=== PATIENT | male | born 1965 | race Caucasian/White ===

== ENCOUNTER 2021-04-11 11:17 | Emergency (ER) | payer MEDICARE, OTHER ==
[~2021-04-11] VITALS: Ht 172.7 cm; Wt 100.2 kg
[2021-04-11] MEDS ORDERED: TYLOPHEN500 MG PO (12:00)
[2021-04-11] MEDS ORDERED: BUPROPION XL300 MG PO (12:01)
[2021-04-11] MEDS ORDERED: CATAPRES-TTS 11 EACH TD (12:06)
[2021-04-11] MEDS ORDERED: FLUVOXAMINE MA100 MG PO (12:07)
[2021-04-11] MEDS ORDERED: DEPAKOTE500 MG PO (12:07)
[2021-04-11] MEDS ORDERED: GABAPENTIN300 MG PO (12:08)
[2021-04-11] MEDS ORDERED: LEVOTHYROXINE75 MC1 PO (12:08)
[2021-04-11] MEDS ORDERED: LITHIUM CARBON300 MG PO (12:09)
[2021-04-11] MEDS ORDERED: ALTOPREV40 MG PO (12:10)
[2021-04-11] MEDS ORDERED: PRIMIDONE50 MG PO (12:10)
[2021-04-11] MEDS ORDERED: CLARITIN10 M1 PO (12:10)
[2021-04-11] MEDS ORDERED: RISPERDAL1 MG PO (12:11)
[2021-04-11] MEDS ORDERED: CEPHALEXIN500 M1 PO (12:31)
--- OUTSIDE RECORDS SUMMARY | 2021-04-11 12:38 | XMS ---
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 ED/UCC VISIT TRACKING (12 MO.) 04/11/2021 11:18 [facility] [place] TYPE: Emergency COMPLAINT: - BLOOD IN URINE 08/27/2020 15:43 [facility] [place] TYPE: Emergency DIAGNOSES: - Contusion of left middle finger without damage to nail, initial encounter - L MIDDLE FINGER INPATIENT VISIT TRACKING (12 MO.) No inpatient visits to display in this time frame [email or web address]
[2021-04-11] MEDS ORDERED: PYRIDIUM200 MG PO (12:48)
== END 2021-04-11 12:45 | disposition home or self-care (01) ==
LOC: ED 11:17
DX: N39.0 Urinary tract infection, site not specified (principal); Z79.899 Other long term (current) drug therapy
CPT/HCPCS: 51798; 81001; 87088; 99283-25

== ENCOUNTER 2021-04-23 07:48 | Emergency (ER) | payer MEDICARE, OTHER ==
[~2021-04-23] VITALS: Ht 172.7 cm; Wt 100.2 kg
[~2021-04-23 07:48] MED LIST: ALTOPREV40 MG PO; BUPROPION XL300 MG PO; CATAPRES-TTS 11 EACH TD; CEPHALEXIN500 M1 PO; CLARITIN10 M1 PO; DEPAKOTE500 MG PO; FLUVOXAMINE MA100 MG PO; GABAPENTIN300 MG PO; LEVOTHYROXINE75 MC1 PO; LITHIUM CARBON300 MG PO; PRIMIDONE50 MG PO; PYRIDIUM200 MG PO; RISPERDAL1 MG PO; TYLOPHEN500 MG PO
--- OUTSIDE RECORDS SUMMARY | 2021-04-23 07:50 | XMS ---
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 [facility] TOTAL 3 NOTE: Visits indicate total known visits. ED/UCC VISIT TRACKING (12 MO.) 04/23/2021 07:48 [facility] [place] TYPE: Emergency COMPLAINT: - BLLOD IN URINE 04/11/2021 11:18 [facility] [place] TYPE: Emergency COMPLAINT: - BLOOD IN URINE DIAGNOSES: - Urinary tract infection, site not specified - Hematuria, unspecified - Urinary tract infection, site not specified - Other alf (current) drug therapy 08/27/2020 15:43 [facility] [place] TYPE: Emergency DIAGNOSES: - Contusion of left middle finger without damage to nail, initial encounter - L MIDDLE FINGER INPATIENT VISIT TRACKING (12 MO.) No inpatient visits to display in this time frame [email or web address]
[2021-04-23] MEDS ORDERED: DOCUSATE SODIU100 MG PO (08:08)
[2021-04-23] MEDS ORDERED: MELATONIN3 MG PO (08:09)
[2021-04-23] MEDS ORDERED: PEG3350510 GM PO (08:10)
[2021-04-23] MEDS ORDERED: VITAMIN D31250 MC1 PO (08:11)
== END 2021-04-23 10:38 | disposition home or self-care (01) ==
LOC: ED 07:48
DX: R31.9 Hematuria, unspecified (principal); I10 Essential (primary) hypertension; Z79.899 Other long term (current) drug therapy
CPT/HCPCS: 74177; 80053; 81001; 85025; 99284-25; J7040; Q9967

== ENCOUNTER 2022-03-22 16:52 | Emergency (ER) | payer MEDICARE, OTHER ==
[~2022-03-22] VITALS: Ht 172.7 cm; Wt 100.2 kg
[~2022-03-22 16:52] MED LIST changes: +DOCUSATE SODIU100 MG PO; +MELATONIN3 MG PO; +PEG3350510 GM PO; +VITAMIN D31250 MC1 PO
--- OUTSIDE RECORDS SUMMARY | 2022-03-22 16:54 | XMS ---
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 04/25/2021 [facility] - Patient is currently established with [facility]. If patient is seen in the ED during business hours. Please contact CHWs at [facility]. Care Recommendation: If this patient has had 5 or more Emergency Department visits in the last 12 months.\T\nbsp; Patient will require education on the scope and purpose of the ED as an acute care provider not a Primary Care Provider and should not be utilized for chronic conditions.\T\nbsp; These are guidelines and the provider should exercise clinical judgment when providing care. E.D. VISIT COUNT (12 MO.) 3 [facility]. TOTAL 3 NOTE: Visits indicate total known visits. 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
[2022-03-22] MEDS ORDERED: KETOCONAZOLE10 GM MISC (18:12)
== END 2022-03-22 18:44 | disposition home or self-care (01) ==
LOC: ED 16:52
DX: N34.2 Other urethritis (principal); B35.6 Tinea cruris; I10 Essential (primary) hypertension; Z79.899 Other long term (current) drug therapy
CPT/HCPCS: 81001; 87491; 99283

== ENCOUNTER 2022-04-19 15:01 | Emergency (ER) | payer MEDICARE, OTHER ==
[~2022-04-19] VITALS: Ht 172.7 cm; Wt 100.2 kg
[~2022-04-19 15:01] MED LIST changes: +KETOCONAZOLE10 GM MISC
--- OUTSIDE RECORDS SUMMARY | 2022-04-19 15:05 | XMS ---
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 No recent Security Events currently on file CRITERIA MET - PDMP - [facility] - 2 Visits in 30 Days - [facility] - Has Care Guidelines CARE PROVIDERS KEERTHI SR Current PHONE: Unknown LUZ MARINA MARTINEZ Nurse Practitioner: Psychiatric/Mental 04/12/2021-Current [employer] PHONE: [phone] ERNESTINE AMARAL Nurse Practitioner: Family 04/25/2021-Current PHONE: [phone] Care Guidelines exist for the following facilities: [facility] ( 08/22/2019 ) Care History Medical/Surgical 04/25/2021 [facility] 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 04/25/2021 [facility] - Patient is currently established with [facility]. If patient is seen in the ED during business hours. Please contact CHWs at [facility]. Care Recommendation: If this patient [...] care. E.D. VISIT COUNT (12 MO.) 3 [facility]. TOTAL 3 NOTE: Visits indicate total known visits. ED/UCC VISIT TRACKING (12 MO.) 04/19/2022 15:02 [facility] TYPE: Emergency COMPLAINT: - FALL 03/22/2022 16:52 [facility] [place] TYPE: Emergency COMPLAINT: - POSS UTI DIAGNOSES: - Hematuria, unspecified - Other urethritis - Other nursing home (current) drug therapy - Essential (primary) hypertension - Anupam blues 04/23/2021 07:48 [facility] [place] TYPE: Emergency COMPLAINT: - BLLOD IN URINE DIAGNOSES: - Hematuria, unspecified - Essential (primary) hypertension - Other nursing home (current) drug therapy INPATIENT VISIT TRACKING (12 MO.) No inpatient visits to display in this time frame [email or web address]
[2022-04-19] MEDS ORDERED: LIPITOR10 MG PO (15:13)
== END 2022-04-19 16:43 | disposition home or self-care (01) ==
LOC: ED 15:01
DX: S06.0X0A Concussion without loss of consciousness, initial encounter (principal); W07.XXXA Fall from chair, initial encounter; I10 Essential (primary) hypertension; Z79.899 Other long term (current) drug therapy
CPT/HCPCS: 70450; A9270

== ENCOUNTER 2023-10-25 16:17 | Emergency (ER) | payer MEDICARE, OTHER ==
[~2023-10-25] VITALS: Ht 172.7 cm; Wt 83.6 kg
[~2023-10-25 16:17] MED LIST changes: +LIPITOR10 MG PO
[2023-10-25] MEDS ORDERED: ICOSAPENT ETHYL1 GM PO (16:35)
[2023-10-25 16:36] LABS: BASOPHILS 0.9 % (0-2); EOSINOPHILS 1.8 % (0-6); HEMATOCRIT 40.9 % (35.0-50.0); HEMOGLOBIN 13.5 g/dL (12.0-18.0); LYMPHOCYTES 30.7 % (24-44); MCH 28.6 (27-36); MCHC 33.1 g/dl (30-36); MCV 86.6 fl (81-99); NEUTROPHILS 54.6 % (39-80); PLATELET COUNT 207 K/uL (140-440); RBC 4.72 M/ul (4.3-5.7); RDW 16.6 (10.5-15.0)
[2023-10-25] MEDS ORDERED: SENNA8.6 MG PO (16:37)
[2023-10-25] MEDS ORDERED: METFORMIN HCL500 M1 PO (16:37)
[2023-10-25] MEDS ORDERED: TRAZODONE HCL50 MG PO (16:37)
[2023-10-25 16:48] LABS: ALBUMIN 3.9 g/dL (3.4-5.0); ALBUMIN/GLOBULIN RATIO 1.26 (1.1-2.4); ANION GAP 15.7 (7-21); BILIRUBIN, TOTAL 0.5 ng/dL (0.2-1.0); BUN/CREATININE RATIO 18.18 (6.0-28.6); CALCIUM 9.2 mg/dL (8.5-10.1); CREATININE, SERUM 0.88 mg/dL (0.70-1.30); POTASSIUM 4.7 mmol/L (3.5-5.1)
[2023-10-25 19:58] VITALS: BP 123/81
--- NOTE | 2023-10-26 15:35 | EKG ---
[facility] [address] [place], [place] [address] Signed Normal sinus rhythm Minimal voltage criteria for LVH, may be normal variant ( R in aVL ) Borderline ECG No previous ECGs available Confirmed by Jyoti Patel ([id number]) on 10/26/2023 3:35:30 PM Electronically Signed By: JYOTI PATEL MD 10/26/23 1535 PATIENT NAME: MIKKI CUMMINS Electrocardiogram DATE OF : 63 PHYSICIAN: JYOTI PATEL MD REPORT #: [id number] REPORT IS CONFIDENTIAL AND NOT TO BE RELEASED WITHOUT AUTHORIZATION
== END 2023-10-25 19:59 | disposition home or self-care (01) ==
LOC: ED 16:17
PROVIDERS: Emergency Medicine
DX: R07.9 Chest pain, unspecified (principal); R55 Syncope and collapse; F43.10 Post-traumatic stress disorder, unspecified; I10 Essential (primary) hypertension; Z79.899 Other long term (current) drug therapy; Z79.84 Long term (current) use of oral hypoglycemic drugs
CPT/HCPCS: 36415; 71045; 80053; 84484; 85025; 85379; 99285-25